=== PATIENT | female | born 1975 | race Two or more races ===

== ENCOUNTER 2017-05-02 02:19 | Emergency (ER) | payer SELFPAY ==
[~2017-05-02] VITALS: Ht 167.6 cm; Wt 86.0 kg
[2017-05-02 02:22] VITALS: BP 169/115
== END 2017-05-02 04:47 | disposition left against medical advice (07) ==
LOC: EME 02:19
DX: M25.552 Pain in left hip (principal); Z53.21 Procedure and treatment not carried out due to patient leaving prior to being seen by health care provider

== ENCOUNTER 2017-06-03 19:30 | Emergency (ER) | payer OTHER ==
[~2017-06-03] VITALS: Ht 170.2 cm; Wt 81.1 kg
[2017-06-03 21:16] LABS: CHLORIDE 102 mEq/L (99-109); POTASSIUM 3.5 mEq/L (3.7-5.4); SODIUM 137 mEq/L (136-147)
[2017-06-03 21:19] LABS: ANION GAP 8 MEQ/L (2-14)
[2017-06-03 21:21] LABS: GFR ESTIMATE (CALCULATED) 52 mL/min/; GLUCOSE 542 mg/dL (70-99)
[2017-06-03 21:22] LABS: UREA NITROGEN (BUN) 9 mg/dL (9-23)
[2017-06-03 21:28] LABS: TROP-I INTERPRETATION NEGATIVE; TROPONIN-I < 0.01 ng/mL (0.0-0.30)
[2017-06-03 21:47] LABS: MCH 22.4 PG (29.0-34.0); MCHC 30.5 G/DL (30.0-36.0); MCV 73.4 FL (83-99); MEAN PLAT.VOLUME 11.3 uM^3 (9.5-12.4); PLATELET COUNT 299 K/uL (156-360); RBC DIS.WIDTH-SD 44.7 % (39-53); RED BLOOD COUNT 5.04 M/uL (3.80-5.20)
[2017-06-03 23:45] LABS: POINT-OF-CARE METER ID UU14100415
[2017-06-03 23:50] VITALS: BP 136/99
[2017-06-03] MEDS ORDERED: LISINOPRIL10 MG PO (23:52)
[2017-06-06 12:54] LABS: POINT-OF-CARE METER ID UU13113778
== END 2017-06-03 23:52 | disposition home or self-care (01) ==
LOC: EME 19:30
PROVIDERS: Emergency Medicine
DX: E11.9 Type 2 diabetes mellitus without complications (principal); R07.89 Other chest pain; I10 Essential (primary) hypertension; F17.200 Nicotine dependence, unspecified, uncomplicated
CPT/HCPCS: 71020; 80048; 82948; 84484; 85027; 93005; 99281; 99285; J1815; J7030